=== PATIENT | female | born 2000 | race Caucasian/White ===

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

== ENCOUNTER 2023-11-20 23:11 | Outpatient (CLI) | payer OTHER ==
--- NOTE | 2023-11-20 23:15 | NUR ---
Ambulatory to unit for labor assessment, accompanied by boyfriend. Oriented to room, monitor, plan of care. Pt reports ctx 'basically all day but for last 4 hours they've been getting more intense." SVE 1-05/01-/-2 slightly posterior, no bloody show or leaking of fluid.
[2023-11-20 23:30] VITALS: BP 124/88; PULSE 91; TEMP 98.3
[2023-11-20] MEDS ORDERED: LR 1,000 ML IV PRN (23:45)
[2023-11-21 00:40] VITALS: BP 117/80; PULSE 86
--- NOTE | 2023-11-21 00:42 | NUR ---
Repeat SVE with no changes noted.
[2023-11-21] MEDS ORDERED: PRENATAL TABLET PO (23:24)
== END 2023-11-21 01:05 | disposition home or self-care (01) ==
LOC: LDRO 23:11
DX: O26.893 Other specified pregnancy related conditions, third trimester (principal); E75.5 Other lipid storage disorders; Z3A.39 39 weeks gestation of pregnancy

== ENCOUNTER 2023-11-21 18:49 | Inpatient (IN) | payer MEDICAID ==
[~2023-11-21] VITALS: Ht 170.2 cm; Wt 87.3 kg
[2023-11-21] VITALS (13 sets, daily range): BP systolic 107–144; BP diastolic 59–78; PULSE 78–105; TEMP 98–98.3
--- NOTE | 2023-11-21 18:50 | NUR ---
Ambulatory to unit for labor assessment, accompanied by LP. Pt reports ctx continuing and increasing in strength since last evening, and leaking fluid since noon. oriented to room, monitor, plan of care. SVE 2+/90%-2 free fluid with positive amniotrace, no bleeding noted.
[2023-11-21] MEDS ORDERED: LR 1,000 ML IV SCH (19:30)
[2023-11-21] MEDS ORDERED: LR & Oxytocin 500 ML IV SCH ×2 (19:30)
--- NOTE | 2023-11-21 21:15 | NUR ---
Pitoicn gtt started after explanation to pt and spouse.
--- NOTE | 2023-11-21 21:30 | NUR ---
pt becoming increasingly uncomfortable. FHT's with loss of tracing to record maternal heart rate. active baby Monitors adjusted.
[2023-11-21 21:44] LABS: BASO % 0.2 % (0.0-2.0); EOS # 0.1 K/mm3 (0.0-0.7); GRAN # 10.3 K/mm3 (1.4-6.5); GRAN % 79.3 % (42.2-75.2); HEMOGLOBIN 10.9 g/dl (12.5-16.0); LYMPH # 1.6 K/mm3 (1.2-3.4); LYMPH % 12.4 % (20.0-51.0); MEAN CELL VOLUME 86 fl (80.0-100.0); MEAN CORPUSCULAR HEMOGLOBIN 29 pg (27-31); MEAN CORPUSCULAR HGB CONC 34 g/dl (33.0-37.0); MEAN PLATELET VOLUME 10.9 fl (7.4-10.4); MONO # 0.9 K/mm3 (0.1-0.6); MONO % 6.6 % (1.7-9.3); PLATELET COUNT 233 K/mm3 (130-400); RED BLOOD COUNT 3.73 M/mm3 (4.10-5.30); REDCELL DISTRIBUTION WIDTH-CV 12.4 % (11.5-14.5)
[2023-11-21 21:49] LABS: HEMATOCRIT 31.9 % (37.0-47.0)
--- NOTE | 2023-11-21 22:15 | NUR ---
Up to bathroom. Requesting epidural
--- NOTE | 2023-11-21 22:30 | NUR ---
Pt quietly deep breathing wiht ctx. LR bolus in progress.
[2023-11-21] MEDS ORDERED: ROPivacaine PF 0.2% 200 ML IV ONE (22:39)
--- NOTE | 2023-11-21 22:45 | NUR ---
[employer] into room for epidural placement. Pt moved to sit on edge of bed. EFM tracing maternal heart rate.
[2023-11-21 22:58] LABS: TRICYCLIC ANTIDEPRESS URINE NEGATIVE (NEGATIVE)
[2023-11-21] MEDS ORDERED: diphenhydrAMINE 50 MG/ML 1 ML VIAL IV PRN (23:15)
[2023-11-21] MEDS ORDERED: diphenhydrAMINE 25 MG CAP PO PRN (23:15)
[2023-11-21] MEDS ORDERED: Naloxone 0.4 MG/ML VIAL IV PRN (23:15)
[2023-11-21] MEDS ORDERED: ePHEDrine 50 MG/10 ML VIAL IV PRN (23:15)
[2023-11-21] MEDS ORDERED: Ondansetron 4 MG/2 ML VIAL IV PRN (23:15)
[2023-11-21] MEDS ORDERED: PRENATAL TABLET PO (23:24)
[2023-11-22] VITALS (24 sets, daily range): BP systolic 108–142; BP diastolic 56–81; PULSE 68–117; TEMP 97.9–99
--- NOTE | 2023-11-22 00:20 | NUR ---
CTX 1-4 min apart, Pitocin gtt to 10mu. Pt relaxed social
--- NOTE | 2023-11-22 01:00 | NUR ---
FHT's with early decel to 110's, followed by subtle late decel to 130's. Next 3 ctx with later occuring deceleations t0 110's
--- NOTE | 2023-11-22 01:10 | NUR ---
FHT's with recurrent later onset decelerations to 110's with last 4 ctx, all return to baseline with 10 seconds of end of ctx. SVE as noted, to WL. Pitocin decreased to 8 mu r\t ctx 1.5-2.
--- NOTE | 2023-11-22 01:15 | NUR ---
FHT's with late decels to 90's with each ctx, Pt to [employer]
--- NOTE | 2023-11-22 01:45 | NUR ---
FHT's late decels more subtle since moving to HF, now oncet with peak of ctx down from baseline 150's to 140's and return to baseline by end of UC
--- NOTE | 2023-11-22 02:03 | NUR ---
SVE ant rim
--- NOTE | 2023-11-22 02:15 | NUR ---
TAMERA luis, Jeaneth Gonzalez.
--- NOTE | 2023-11-22 02:30 | NUR ---
Pushing intermittently, pt not feeling ctx, unable to move LEGS. FHT's with decelrations with late onsets down to 90's-100's. Some descent noted with pushing.
--- NOTE | 2023-11-22 03:00 | NUR ---
FHT's with recurrent late decels to 110's-120's, with recovery to baseline 150's before onset of next ctx. Onset to return to baseline 50-60 seconds. call person OB enroute to hospital to assess multiple L&D pts. Will continue to push intermittently.
--- NOTE | 2023-11-22 03:30 | NUR ---
Roles into room. Assess FHR tracing. SVE by DR Liao to assess pushing, adequacy of pelvis. Dr Liao encourages pt to continue pushing.
--- NOTE | 2023-11-22 03:45 | NUR ---
Pt reports "I'm really starting to have a lot of pain on my left side'" Pt points to area just to the left of umbulicus. Pain jpt is feeling correlates with onset of ctx, 0352 Pt tipped slightly to L side, HOB losered and pt instructed to push Epidural TRACK PATROL button. 0400 to WL, and pt pushes TRACK PATROL button. FHT's baseline 160's, with decels to 90's to 100's between ctx. Dr Liao continues at L&D desk, aware of FHT's.
--- NOTE | 2023-11-22 04:15 | NUR ---
To LL. Pt reports "the pain isn't getting any better" 042 Dr Roles into room. Assess progress. Discuss with pt options to continue pushung or assist with vacuum. Pt and agree to vacuum assist. NSY and charge nurse notified to come for delivery. Pt set up and prepped for delivery. Vacuum applied by DR Liao.
--- NOTE | 2023-11-22 04:32 | NUR ---
Vacuum assist vaginal delivery by Dr Walters
--- NOTE | 2023-11-22 04:37 | NUR ---
Placenta delivers spont and intact with 3 vessel cord. Pitocin gtt to bolus rate.
--- NOTE | 2023-11-22 04:50 | NUR ---
St cath by Dr Liao after perineal repair complete. Pericare completed. Ice pack to perineum, bed together.
[2023-11-22] MEDS ORDERED: Phenylephrine/Mineral Oil/Petrolatum 57 GM TUBE RC PRN (05:00)
[2023-11-22] MEDS ORDERED: Witch Hazel 50% Pads Bulk TUB TP PRN (05:00)
[2023-11-22] MEDS ORDERED: Acetaminophen 500 MG TAB PO SCH (05:00)
[2023-11-22] MEDS ORDERED: Magnes Hydrox (MOM) 80 MG/ML 30 ML CUP PO PRN (05:00)
[2023-11-22] MEDS ORDERED: Measles/Mumps/Rubella Virus Vaccine Live w Diluent 0.5 ML VIAL SQ SCH (05:00)
[2023-11-22] MEDS ORDERED: Mag/Al Hydrox/Simeth Susp 30 ML CUP PO PRN (05:00)
[2023-11-22] MEDS ORDERED: oxyCODONE 5 MG TAB PO PRN (05:00)
[2023-11-22] MEDS ORDERED: Ibuprofen 800 MG TAB PO SCH (05:00)
[2023-11-22] MEDS ORDERED: Loratadine 10 MG TAB PO PRN (05:00)
[2023-11-22] MEDS ORDERED: Naloxone 0.4 MG/ML VIAL IV PRN (05:00)
[2023-11-22] MEDS ORDERED: Sennosides/Docusate 8.6-50 MG TAB PO SCH (08:00)
[2023-11-22] MEDS ORDERED: Prenatal Vitamins/Iron/FA TAB PO SCH (09:00)
[2023-11-22] MEDS ORDERED: traZODone 50 MG TAB PO PRN (21:00)
[2023-11-23 01:00] VITALS: BP 101/64; PULSE 88; TEMP 98.7
[2023-11-23 07:30] VITALS: BP 123/62; PULSE 90; TEMP 98.1
[2023-11-23 16:00] VITALS: BP 115/68; PULSE 86; TEMP 98
[2023-11-23 20:47] VITALS: BP 122/61; PULSE 90; TEMP 98.3
[2023-11-24 08:44] VITALS: BP 115/71; PULSE 99; TEMP 98.8
[2023-11-24] MEDS ORDERED: IBU800 M1 PO (10:44)
--- NOTE | 2023-11-24 12:35 | NUR ---
ALL DC PAPERWORK AND FOLLOW UP APPOINTMENTS REVIEWED AND UNDERSTOOD BY PT. PT DENIES FURTHER QUESTIONS OR CONCERNS. PT AMBULATORY FROM UNIT WITH FOB AT THIS TIME IN STABLE CONDITION.
== END 2023-11-24 12:35 | disposition home or self-care (01) | DRG 807 ==
LOC: LDRO 18:49 → LDR 19:25 → LDRO 20:02 → LDR 20:05 → OB 11-22 10:05
PROVIDERS: Obstetrics & Gynecology; ADMIT Obstetrics & Gynecology
PROC: 10D07Z6 Extraction of Products of Conception, Vacuum, Via Natural or Artificial Opening (ICD-10-PCS; principal; 2023-11-22)
PROC: 0KQM0ZZ Repair Perineum Muscle, Open Approach (ICD-10-PCS; 2023-11-22)
DX: O75.81 Maternal exhaustion complicating labor and delivery (principal); Z37.0 Single live birth; Z3A.39 39 weeks gestation of pregnancy; O70.1 Second degree perineal laceration during delivery; O76 Abnormality in fetal heart rate and rhythm complicating labor and delivery
CPT/HCPCS: J2590; J2795; J7120